=== PATIENT | female | born 1960 | race Caucasian/White ===

== ENCOUNTER → 2017-08-22 | Outpatient (CLI) | payer OTHER | LOC: FIMAGING 11:24 | PROVIDERS: ATTEND Family Medicine | DX: Z12.31 Encounter for screening mammogram for malignant neoplasm of breast (principal) | CPT/HCPCS: G0202 ==

== ENCOUNTER → 2018-08-27 | Outpatient (CLI) | payer OTHER | END | disposition home or self-care (01) | LOC: FIMAGING 09:46 | PROVIDERS: ATTEND Family Medicine | DX: Z12.31 Encounter for screening mammogram for malignant neoplasm of breast (principal) ==

== ENCOUNTER → 2018-10-30 | Outpatient (CLI) | payer OTHER | LOC: BMCIMAGING 10:56 | PROVIDERS: ATTEND Orthopaedic Surgery | DX: Z13.820 Encounter for screening for osteoporosis (principal); M85.89 Other specified disorders of bone density and structure, multiple sites; M84.376A Stress fracture, unspecified foot, initial encounter for fracture; Z78.0 Asymptomatic menopausal state ==